=== PATIENT | male | born 1975 | race Caucasian/White ===

== ENCOUNTER 2016-04-12 05:40 | Emergency (ER) | payer OTHER ==
[2016-04-12 05:45] VITALS: BP 133/90; PULSE 78; TEMP 97.5; BMI 30.2
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
== END 2016-04-12 05:53 | disposition home or self-care (01) ==
LOC: FER 05:40
DX: F17.210 Nicotine dependence, cigarettes, uncomplicated (principal); M79.622 Pain in left upper arm
CPT/HCPCS: 99282-25

== ENCOUNTER 2016-07-03 00:22 | Emergency (ER) | payer OTHER ==
[2016-07-03] MEDS ORDERED: morphine CARPU-JECT 4 MG/1 ML DISP.SYRIN IVPUSH ONE ×2 (00:28→02:23)
[2016-07-03 00:38] VITALS: TEMP 98; BMI 31.7
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
[2016-07-03 01:10] LABS: BASOPHIL 0.7 % (0-2.0); EOSINOPHIL 2.3 % (0-4.5); MCH 28.2 pg (25.7-33.7); MCHC 32.9 g/dl (32.0-35.9); MEAN CELL VOLUME 85.7 fl (80-96); NEUTROPHILS 56.7 % (42.8-82.8); PLATELET COUNT 258 K/MM3 (134-434); RDW 13.6 % (11.9-15.9); WHITE BLOOD COUNT 8.7 K/mm3 (4.0-10.0)
[2016-07-03 01:12] LABS: URINE APPEARANCE CLEAR; URINE BILIRUBIN NEGATIVE (NEGATIVE); URINE BLOOD NEGATIVE (NEGATIVE); URINE COLOR YELLOW; URINE GLUCOSE (UA) NEGATIVE (NEGATIVE); URINE KETONE TRACE (NEGATIVE); URINE LEUK ESTERASE NEGATIVE (NEGATIVE); URINE NITRITE NEGATIVE (NEGATIVE); URINE UROBILINOGEN NEGATIVE E.U./dl (0.2-1.0)
[2016-07-03 01:15] LABS: URINE PROTEIN 1+ (NEGATIVE)
[2016-07-03 01:23] LABS: INR 1.08 (0.82-1.09); PROTHROMBIN TIME (PATIENT) 11.9 SEC (9.98-11.88)
[2016-07-03 01:32] LABS: ALK PHOS 59 U/L (45-117); ANION GAP 14 (8-16); BILIRUBIN,TOTAL 0.2 mg/dL (0.2-1.0); CALCIUM 8.8 mg/dL (8.5-10.1); CO2 22 mmol/L (21-32); CREATININE 0.9 mg/dL (0.7-1.3); GLUCOSE,RANDOM 130 mg/dL (74-106); SGOT/AST 21 U/L (15-37); SGPT/ALT 24 U/L (12-78); TOT PROT 7.1 g/dl (6.4-8.2)
[2016-07-03 01:38] LABS: TROPONIN I < 0.02 ng/ml (0.00-0.05); URINE HYALINE CAST 10 /lpf; URINE MUCUS MODERATE; URINE RBC 1 /hpf (0-3); URINE WBC 1 /hpf (3-5)
[2016-07-03] MEDS ORDERED: morphine CARPU-JECT 2 MG/1 ML DISP.SYRIN ONE (02:31)
[2016-07-03 02:38] VITALS: BP 137/90; PULSE 71
--- NOTE | 2016-07-03 15:08 | EKG ---
Test Reason : Blood Pressure : / mmHG Vent. Rate : 088 BPM Atrial Rate : 088 BPM P-R Int : 170 ms QRS Dur : 092 ms QT Int : 368 ms P-R-T Axes : 059 056 044 degrees QTc Int : 445 ms NORMAL SINUS RHYTHM NO PREVIOUS ECGS AVAILABLE Confirmed by MD LUND MARJORY ([id number]) on 07/03/2016 3:07:47 PM Referred By: MD MCCARTNEY Confirmed By:BHANU LUND MD
== END 2016-07-03 03:58 | disposition home or self-care (01) ==
LOC: FER 00:22
PROC: 3E033NZ Introduction of Analgesics, Hypnotics, Sedatives into Peripheral Vein, Percutaneous Approach (ICD-10-PCS; principal; 2016-07-03)
DX: S43.004A Unspecified dislocation of right shoulder joint, initial encounter (principal); V23.4XXA Motorcycle driver injured in collision with car, pick-up truck or van in traffic accident, initial encounter; Y93.89 Activity, other specified; Y92.412 Parkway as the place of occurrence of the external cause; F17.210 Nicotine dependence, cigarettes, uncomplicated
CPT/HCPCS: 36415; 70450-TC; 71010-TC; 71260-TC; 72125-TC; 73030-TC-RT; 73060-TC-RT; 73130-TC-LT; 73130-TC-RT; 73560-TC-LT; 73610-TC-RT; 73630-TC-RT; 74177-TC; 80053; 81003; 81015; 82550; 82553; 84484; 85025; 85610; 86850; 86900; 86901; 93005; 96374; 96376; 99283-25